=== PATIENT | female | born 1990 | race Two or more races ===

== ENCOUNTER 2016-12-01 13:50 | Emergency (ER) | payer OTHER ==
[~2016-12-01] VITALS: Ht 162.6 cm; Wt 86.2 kg
--- NOTE | 2016-12-01 14:02 | Emergency Room Report ---
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 [place] weak. "collapsed" without LOC Denies precipitating chest pain, SOB, headache, abd pain Was drinking water. Ate today Denies other medical problems Denies fam history SCD Asymptomatic now Allergies: Coded Allergies: No Known Allergies (Unverified , 12/01/16) Patient History Past Medical History: none Past Surgical History: none Pertinent Family History: DM Social History: Denies: smoking, alcohol use, drug use Last Menstrual Period: 2-3 weeks ago Now: No Immunizations: UTD Reviewed Nursing Documentation: PMH: Agreed, PSxH: Agreed Nursing Documentation-PMH Past Medical History: No Stated History Review of Systems All Other Systems: negative except mentioned in HPI Physical Exam Vital Signs Date Time Temp Pulse Resp B/P (MAP) Pulse Ox O2 Delivery O2 Flow Rate FiO2 12/01/16 13:45 98.6 84 16 114/86 99 Room Air Sp02 EP Interpretation: reviewed, normal General Appearance: normal inspection, well appearing, no apparent distress, alert, GCS 15, non-toxic Head: normocephalic, atraumatic Eyes: bilateral eye PERRL, bilateral eye EOMI ENT: normal ENT inspection, hearing grossly normal, normal voice Neck: normal inspection, full range of motion, supple, no bony tend Respiratory: normal inspection, lungs clear, normal breath sounds, no respiratory distress, no retraction, no wheezing Cardiovascular #1: regular rate, rhythm, no edema Gastrointestinal: normal inspection, normal bowel sounds, non tender, soft, no guarding, no hernia Genitourinary: no CVA tenderness Musculoskeletal: normal inspection, back normal, normal range of motion, Ernesto' s Sign negative Neurologic: normal inspection, alert, oriented x3, responsive, nurse emergency room III-XII nml as tested, motor strength/tone normal, speech normal Psychiatric: normal inspection, judgement/insight normal, mood/affect normal Skin: normal inspection Lymphatic: normal inspection Medical Decision Making Diagnostic Impression: Primary Impression: Near syncope ER Course VSS. Afebrile Not hyperthermic No focal neuro deficits Normal mental status ECG no ischemia. Urine preg negative Glucose normal Tolerating PO in ED Ambulating with steady gait. Well appearing. EKG Diagnostic Results Rate: normal Rhythm: NSR ST Segments: no acute changes ASA given to the pt in ED: No Rhythm Strip Diag. Results EP Interpretation: yes Rate: 65 Rhythm: NSR, no PVC's, no ectopy Last Vital Signs Date Time Temp Pulse Resp B/P (MAP) Pulse Ox O2 Delivery O2 Flow Rate FiO2 12/01/16 13:45 98.6 84 16 114/86 99 Room Air Status: improved Disposition: HOME, SELF-CARE SELVIN JUAREZ M.D. Dec 01, 2016 14:02
[2016-12-01 15:48] VITALS: BP 105/82
[2016-12-01 16:00] VITALS: BP 114/71
--- NOTE | 2016-12-03 12:43 | Cardiology Report ---
APPROVED REPORT EKG Measurement Heart [id number] Normal sinus rhythm Normal ECG
== END 2016-12-01 16:00 | disposition home or self-care (01) ==
LOC: EDBD 13:50 → EMR 14:00
DX: R55 Syncope and collapse (principal); R53.1 Weakness
CPT/HCPCS: 81025; 82962; 93005; 99283